=== PATIENT | female | born 1930 | race Caucasian/White ===

== ENCOUNTER → 2016-11-27 | Outpatient (CLI) | payer MEDICARE, MEDICAID ==
[~2016-11-27] MED LIST: ACET325T49 PO; ALN70T; AMLO2.5T; ASP81CT PO; AVANDAMET; CLCX200C; CPR500T PO; DIVA125C3 PO; ESCT10T PO; GENT5DRO3 OU; GLIP5TAB13 PO; GLMP2T; HALO5AMP IJ; LNS30CCR; LORA1TAB PO; MELO-198 PO; MTF500T PO; MULT1TAB59 PO; NITR-65 PO; OMEP-10; OMEP-10 PO; QTP25T PO; RSP.25T PO; SITA100T PO; SITA1TAB6; SULF1TAB7 PO; SYNTHROID PO
[2016-11-27 07:53] LABS: BASOPHILS % (AUTO) 0 % (0-10); EOSINOPHILS # (AUTO) 0.1 10^3/uL (0.0-0.3); EOSINOPHILS % (AUTO) 1 % (0-10); LYMPHOCYTES # (AUTO) 3.1 X 10^3 (1.0-4.0); LYMPHOCYTES % (AUTO) 53 % (12-44); MEAN CORPUSCULAR HEMOGLOBIN 30 PG (25-34); MEAN CORPUSCULAR HGB CONC 33 G/DL (32-36); MEAN CORPUSCULAR VOLUME 92 FL (80-99); MEAN PLATELET VOLUME 10.2 FL (7.4-10.4); MONOCYTES # (AUTO) 0.7 X 10^3 (0.0-1.0); MONOCYTES % (AUTO) 12 % (0-12); NEUTROPHILS % (AUTO) 34 % (42-75); PLATELET COUNT 263 10^3/uL (130-400); RED BLOOD COUNT 4.22 10^6/uL (4.35-5.85); WHITE BLOOD COUNT 5.9 10^3/uL (4.3-11.0)
[2016-11-27 08:16] LABS: ALANINE AMINOTRANSFERASE 7 U/L (0-55); ALBUMIN 3.7 GM/DL (3.2-4.5); ANION GAP 11 MMOL/L (5-14); ASPARTATE AMINO TRANSFERASE 11 U/L (5-34); BILIRUBIN,TOTAL 0.6 MG/DL (0.1-1.0); BLOOD UREA NITROGEN 20 MG/DL (7-18); BUN/CREATININE RATIO 29; CALCIUM 8.9 MG/DL (8.5-10.1); CARBON DIOXIDE 26 MMOL/L (21-32); CHLORIDE 105 MMOL/L (98-107); CREATININE SERUM 0.69 MG/DL (0.60-1.30); GFR ESTIMATED > 60; GLUCOSE 113 MG/DL (70-105); POTASSIUM 4.2 MMOL/L (3.6-5.0); SODIUM 142 MMOL/L (135-145); TOTAL PROTEIN 6.3 GM/DL (6.4-8.2)
[2016-11-27 17:02] LABS: BILIRUBIN,URINE NEGATIVE (NEGATIVE); KETONES,URINE NEGATIVE (NEGATIVE); LEUKOCYTE ESTERASE ,URINE 2+ (NEGATIVE); NITRITE,URINE NEGATIVE (NEGATIVE); PH,URINE 7 (5-9); PROTEIN,URINE 1+ (NEGATIVE); UROBILINOGEN,URINE NORMAL (NORMAL)
[2016-11-27 17:28] LABS: SQUAMOUS EPITHELIAL CELL,UR 0-2 /HPF
== END ==
LOC: LABNPT 07:00
PROVIDERS: ATTEND Internal Medicine
DX: R53.1 Weakness; R19.7 Diarrhea, unspecified; R29.6 Repeated falls; Z87.440 Personal history of urinary (tract) infections
CPT/HCPCS: 80053; 81000; 85025; 87045; 87046; 87088; 87324; 87328; 87329; 87449